=== PATIENT | male | born 1980 | race Caucasian/White ===

== ENCOUNTER 2021-09-18 19:08 | Inpatient (IN) | payer MEDICARE, MEDICAID ==
[~2021-09-18] VITALS: Ht 180.3 cm; Wt 116.6 kg
[2021-09-18 19:50] LABS: BASOPHILS % (AUTO) 0.6 % (0.0-2.0); EOSINOPHILS % (AUTO) 3.7 % (1.0-6.0); HEMATOCRIT 37.8 % (41-53); HEMOGLOBIN 13.1 g/dL (13.5-17.5); LYMPHOCYTES # (AUTO) 1.8 K/uL (1.0-4.8); LYMPHOCYTES % (AUTO) 23.4 % (22.0-44.0); MEAN CORPUSCULAR HEMOGLOBIN 28.9 pg (26.0-34.0); MEAN CORPUSCULAR HGB CONC 34.7 G/dL (31.0-37.0); MEAN CORPUSCULAR VOLUME 83 fL (80-100); MONOCYTES % (AUTO) 12.8 % (2.0-9.0); NEUTROPHILS # (AUTO) 4.5 K/uL (1.8-7.7); NEUTROPHILS % (AUTO) 59.5 % (40.0-70.0); PLATELET COUNT (AUTO) 205 K/uL (150-450); RED BLOOD CELL COUNT(AUTO) 4.53 MIL/uL (4.50-5.90); RED CELL DISTRIBUTION WIDTH 14.8 % (11.5-14.5)
[2021-09-18 20:00] LABS: ANION GAP 9 mmol/L (8-16); CALCIUM, TOTAL 9.1 mg/dL (8.8-10.5); CARBON DIOXIDE 29 mmol/L (22-29); CHLORIDE 98 mmol/L (98-107); CREATININE 0.95 mg/dL (0.60-1.30); GLOMERULAR FILTR. RATE CALC > 60 mL/min (>60); GLUCOSE,RANDOM 138 mg/dL (70-110); POTASSIUM 3.8 mmol/L (3.5-5.1); SODIUM SERUM 136 mmol/L (136-145); UREA NITROGEN, BLOOD 7 mg/dL (7-18)
[2021-09-18 20:05] LABS: ALANINE AMINOTRANSFERASE 56 U/L (12-78); ALBUMIN 3.7 g/dL (3.4-5.0); ALKALINE PHOSPHATASE 69 U/L (46-116); ASPARTATE AMINOTRANSFERASE 44 U/L (15-37); BILIRUBIN,TOTAL 0.2 mg/dL (0.1-1.0); TOTAL PROTEIN, SERUM 7.7 g/dL (6.4-8.2)
[2021-09-18 20:32] LABS: AMPHET/METH SCREEN,URINE NEGATIVE (NEGATIVE); BARBITURATE SCREEN, URINE NEGATIVE (NEGATIVE); BENZODIAZEPINES SCREEN,URINE NEGATIVE (NEGATIVE); CANNABINOID SCREEN,URINE NEGATIVE (NEGATIVE); COCAINE SCREEN,URINE NEGATIVE (NEGATIVE); METHADONE SCREEN, URINE NEGATIVE (NEGATIVE); OPIATE SCREEN,URINE NEGATIVE (NEGATIVE)
[2021-09-18 20:33] LABS: PHENCYCLIDINE SCREEN,URINE NEGATIVE (NEGATIVE)
[2021-09-18 20:52] LABS: COVID AG,FIA SOURCE NASAL SWAB
[2021-09-18] MEDS ORDERED: ZOLPIDEM TARTRATE 10 MG TABLET PO PRN (21:45)
[2021-09-18 22:46] VITALS: BP 138/86
[2021-09-19] MEDS: HALOPERIDOL 5 MG TABLET PO PRN ×3 (04:00→16:03)
[2021-09-19] MEDS: LORazepam 2 MG TABLET PO PRN ×3 (04:00→16:03)
[2021-09-19 04:50] VITALS: BP 136/79
[2021-09-19 08:00] VITALS: BP 125/82
[2021-09-19] MEDS ORDERED: CloNIDine HCL 0.1 MG TABLET PO PRN (11:00)
[2021-09-19] MEDS ORDERED: ONDANSETRON HCL 4 MG TABLET PO PRN (11:00)
[2021-09-19] MEDS ORDERED: ACETAMINOPHEN 325 MG TABLET PO PRN (11:00)
[2021-09-19] MEDS ORDERED: MAG HYDROX/AL HYDROX/SIMETH ES 30 ML SUSPENSION UDCUP PO PRN (11:00)
[2021-09-19] MEDS ORDERED: ALBUTEROL SULFATE HFA 90 MCG/PUFF 8 GM INHALER IH PRN (11:00)
[2021-09-19] MEDS ORDERED: LOPERAMIDE HCL 2 MG CAPSULE PO PRN (11:00)
[2021-09-19] MEDS ORDERED: DOCUSATE SODIUM 100 MG CAPSULE PO PRN (11:00)
[2021-09-19] MEDS ORDERED: PETROLATUM,WHITE 28 GM JELLY TP PRN (11:00)
[2021-09-19] MEDS ORDERED: IBUPROFEN 400 MG TABLET PO PRN (11:00)
[2021-09-19] MEDS ORDERED: GuaiFENesin/D-METHORPHAN [SUGAR-FREE] 200-20MG/10 ML SYRUP UDCUP PO PRN (11:00)
[2021-09-19] MEDS ORDERED: MAGNESIUM HYDROXIDE SUSPENSION 30 ML UDCUP PO PRN (11:00)
[2021-09-19 16:03] VITALS: BP 150/80
[2021-09-19] MEDS: NICOTINE 14 MG/24 HOUR PATCH TD PRN (16:03)
[2021-09-19 16:05] VITALS: BP 150/80
[2021-09-19] MEDS ORDERED: ChlorproMAZINE HCL 100 MG TABLET PO PRN (17:45)
[2021-09-19] MEDS ORDERED: ChlorproMAZINE HCL 50 MG TABLET PO PRN (18:18)
[2021-09-19] MEDS: TEMAZEPAM 15 MG CAPSULE PO PRN (20:32)
[2021-09-19] MEDS: TraZODone HCL 100 MG TABLET PO SCH (20:32)
[2021-09-19] MEDS: TRIHEXYPHENIDYL HCL 5 MG TABLET PO SCH (20:32)
[2021-09-19] MEDS: DIVALPROEX SODIUM 500 MG DR TABLET PO SCH (20:32)
[2021-09-20 04:43] VITALS: BP 135/82
[2021-09-20] MEDS: QUEtiapine FUMARATE 100 MG TABLET PO SCH ×3 (06:17→11:31)
[2021-09-20] MEDS: HALOPERIDOL 10 MG TABLET PO SCH ×5 (06:17→20:30)
[2021-09-20] MEDS: LORazepam 2 MG TABLET PO PRN ×3 (08:10→16:11)
[2021-09-20] MEDS: DIVALPROEX SODIUM 500 MG DR TABLET PO SCH ×3 (08:11→20:30)
[2021-09-20] MEDS: TRIHEXYPHENIDYL HCL 5 MG TABLET PO SCH ×3 (08:11→20:30)
[2021-09-20 08:23] VITALS: BP 146/90
[2021-09-20] MEDS ORDERED: HALOPERIDOL 5 MG TABLET PO PRN (13:45)
[2021-09-20 16:05] VITALS: BP 137/85
[2021-09-20] MEDS: NICOTINE 14 MG/24 HOUR PATCH TD PRN (17:11)
[2021-09-20] MEDS: TraZODone HCL 100 MG TABLET PO SCH (20:30)
[2021-09-20] MEDS: MELATONIN 5 MG TABLET PO SCH (20:30)
[2021-09-20] MEDS: TEMAZEPAM 15 MG CAPSULE PO PRN (20:30)
[2021-09-21 04:03] VITALS: BP 134/75
[2021-09-21] MEDS: LORazepam 2 MG TABLET PO PRN ×2 (06:26→16:34)
[2021-09-21 08:08] VITALS: BP 137/84
[2021-09-21] MEDS: TRIHEXYPHENIDYL HCL 5 MG TABLET PO SCH ×3 (08:12→20:29)
[2021-09-21] MEDS: HALOPERIDOL 10 MG TABLET PO SCH ×4 (08:12→20:30)
[2021-09-21] MEDS: NALTREXONE HCL 50 MG TABLET PO SCH (08:12)
[2021-09-21] MEDS: DIVALPROEX SODIUM 500 MG DR TABLET PO SCH ×3 (08:12→20:30)
[2021-09-21] MEDS: OMEGA-3/DHA/EPA/FISH OIL 1,000 MG CAPSULE PO SCH (08:12)
[2021-09-21 16:09] VITALS: BP 128/70
[2021-09-21] MEDS: MELATONIN 5 MG TABLET PO SCH (20:29)
[2021-09-21] MEDS: TraZODone HCL 100 MG TABLET PO SCH (20:30)
[2021-09-22 05:04] VITALS: BP 130/79
[2021-09-22 07:36] LABS: BASOPHILS % (AUTO) 0.7 % (0.0-2.0); EOSINOPHILS % (AUTO) 4.7 % (1.0-6.0); HEMATOCRIT 37.8 % (41-53); LYMPHOCYTES # (AUTO) 2.1 K/uL (1.0-4.8); LYMPHOCYTES % (AUTO) 24.7 % (22.0-44.0); MEAN CORPUSCULAR HEMOGLOBIN 29.1 pg (26.0-34.0); MEAN CORPUSCULAR HGB CONC 34.4 G/dL (31.0-37.0); MEAN CORPUSCULAR VOLUME 85 fL (80-100); NEUTROPHILS # (AUTO) 4.9 K/uL (1.8-7.7); NEUTROPHILS % (AUTO) 57.9 % (40.0-70.0); PLATELET COUNT (AUTO) 218 K/uL (150-450); RED BLOOD CELL COUNT(AUTO) 4.45 MIL/uL (4.50-5.90)
[2021-09-22 08:09] VITALS: BP 149/79
[2021-09-22] MEDS ORDERED: CloZAPine 25 MG TABLET PO SCH (09:00)
[2021-09-22] MEDS: TRIHEXYPHENIDYL HCL 5 MG TABLET PO SCH ×3 (09:06→20:41)
[2021-09-22] MEDS: DIVALPROEX SODIUM 500 MG DR TABLET PO SCH ×3 (09:07→20:41)
[2021-09-22] MEDS: NALTREXONE HCL 50 MG TABLET PO SCH (09:07)
[2021-09-22] MEDS: HALOPERIDOL 10 MG TABLET PO SCH ×4 (09:07→20:41)
[2021-09-22] MEDS: OMEGA-3/DHA/EPA/FISH OIL 1,000 MG CAPSULE PO SCH (09:07)
[2021-09-22] MEDS: GABAPENTIN 300 MG CAPSULE PO PRN ×2 (16:07→20:41)
[2021-09-22 16:09] VITALS: BP 140/96
[2021-09-22] MEDS: HALOPERIDOL 5 MG TABLET PO PRN (18:02)
[2021-09-22] MEDS: MELATONIN 5 MG TABLET PO SCH (20:41)
[2021-09-22] MEDS: TraZODone HCL 100 MG TABLET PO SCH (20:41)
[2021-09-22] MEDS: NICOTINE 14 MG/24 HOUR PATCH TD PRN (21:22)
[2021-09-23] MEDS: GABAPENTIN 300 MG CAPSULE PO PRN (02:05)
[2021-09-23] MEDS: HALOPERIDOL 5 MG TABLET PO PRN ×2 (02:05→06:14)
[2021-09-23 05:35] VITALS: BP 139/81
[2021-09-23 07:26] LABS: CHOL/HDL RATIO 4.1 (4.2-7.3); FREE T4 (FREE THYROXINE) 0.94 ng/dL (0.76-1.46); THYROID STIMULATING HORMONE 1.05 uIU/mL (0.36-3.74)
[2021-09-23] MEDS: TRIHEXYPHENIDYL HCL 5 MG TABLET PO SCH ×3 (08:15→20:10)
[2021-09-23] MEDS: HALOPERIDOL 10 MG TABLET PO SCH ×4 (08:15→18:28)
[2021-09-23] MEDS: NALTREXONE HCL 50 MG TABLET PO SCH (08:15)
[2021-09-23] MEDS: OMEGA-3/DHA/EPA/FISH OIL 1,000 MG CAPSULE PO SCH (08:15)
[2021-09-23] MEDS: DIVALPROEX SODIUM 500 MG DR TABLET PO SCH ×3 (08:15→20:11)
[2021-09-23 08:38] VITALS: BP 152/79
[2021-09-23] MEDS ORDERED: CloZAPine 25 MG TABLET PO SCH ×2 (09:00→21:00)
[2021-09-23] MEDS ORDERED: LORazepam 2 MG/ML VIAL ONE (09:36)
[2021-09-23] MEDS ORDERED: HALOPERIDOL LACTATE 5 MG/ML VIAL ONE (09:36)
[2021-09-23] MEDS ORDERED: DiphenhydrAMINE HCL 50 MG/ML VIAL ONE (09:36)
[2021-09-23] MEDS ORDERED: DiphenhydrAMINE HCL 50 MG/ML VIAL IM ONE (09:45)
[2021-09-23] MEDS ORDERED: LORazepam 2 MG/ML VIAL IM ONE (09:45)
[2021-09-23] MEDS ORDERED: HALOPERIDOL LACTATE 5 MG/ML VIAL IM ONE (09:45)
[2021-09-23 16:22] VITALS: BP 115/70
[2021-09-23] MEDS: MELATONIN 5 MG TABLET PO SCH (20:11)
[2021-09-23] MEDS: TraZODone HCL 100 MG TABLET PO SCH (20:11)
[2021-09-24 05:09] VITALS: BP 144/73
[2021-09-24 08:20] VITALS: BP 128/60
[2021-09-24] MEDS: OMEGA-3/DHA/EPA/FISH OIL 1,000 MG CAPSULE PO SCH (08:21)
[2021-09-24] MEDS: NALTREXONE HCL 50 MG TABLET PO SCH (08:21)
[2021-09-24] MEDS: HALOPERIDOL 10 MG TABLET PO SCH ×4 (08:22→20:36)
[2021-09-24] MEDS: TRIHEXYPHENIDYL HCL 5 MG TABLET PO SCH ×3 (08:22→20:36)
[2021-09-24] MEDS: DIVALPROEX SODIUM 500 MG DR TABLET PO SCH ×3 (08:22→20:37)
[2021-09-24] MEDS ORDERED: CloZAPine 25 MG TABLET PO SCH ×2 (09:00→21:00)
[2021-09-24] MEDS ORDERED: HALOPERIDOL LACTATE 5 MG/ML VIAL IM PRN (15:15)
[2021-09-24 16:08] VITALS: BP 128/84
[2021-09-24] MEDS: NICOTINE 14 MG/24 HOUR PATCH TD PRN (16:53)
[2021-09-24] MEDS: GABAPENTIN 300 MG CAPSULE PO PRN (16:53)
[2021-09-24] MEDS: MELATONIN 5 MG TABLET PO SCH (20:37)
[2021-09-24] MEDS: TraZODone HCL 100 MG TABLET PO SCH (20:37)
[2021-09-25] MEDS: HALOPERIDOL 5 MG TABLET PO PRN ×2 (01:04→06:25)
[2021-09-25] MEDS: GABAPENTIN 300 MG CAPSULE PO PRN ×2 (01:04→06:26)
[2021-09-25 01:12] VITALS: BP 125/70
[2021-09-25] MEDS: CloZAPine 25 MG TABLET PO SCH ×2 (08:13→20:19)
[2021-09-25] MEDS: TRIHEXYPHENIDYL HCL 5 MG TABLET PO SCH ×3 (08:14→20:18)
[2021-09-25] MEDS: HALOPERIDOL 10 MG TABLET PO SCH ×4 (08:14→20:19)
[2021-09-25] MEDS: NALTREXONE HCL 50 MG TABLET PO SCH (08:14)
[2021-09-25] MEDS: OMEGA-3/DHA/EPA/FISH OIL 1,000 MG CAPSULE PO SCH (08:14)
[2021-09-25] MEDS: DIVALPROEX SODIUM 500 MG DR TABLET PO SCH ×3 (08:14→20:19)
[2021-09-25 08:26] VITALS: BP 124/70
[2021-09-25 10:12] LABS: GLUCOMETER DEV NAME(LOC) POC.BV
[2021-09-25 16:09] VITALS: BP 130/68
[2021-09-25] MEDS: TraZODone HCL 100 MG TABLET PO SCH (20:19)
[2021-09-25] MEDS: MELATONIN 5 MG TABLET PO SCH (20:19)
[2021-09-26 03:52] VITALS: BP 126/67
[2021-09-26 08:11] VITALS: BP 122/68
[2021-09-26] MEDS: OMEGA-3/DHA/EPA/FISH OIL 1,000 MG CAPSULE PO SCH (08:32)
[2021-09-26] MEDS: CloZAPine 25 MG TABLET PO SCH ×2 (08:33→20:20)
[2021-09-26] MEDS: NALTREXONE HCL 50 MG TABLET PO SCH (08:33)
[2021-09-26] MEDS: DIVALPROEX SODIUM 500 MG DR TABLET PO SCH ×3 (08:33→20:20)
[2021-09-26] MEDS: HALOPERIDOL 10 MG TABLET PO SCH ×4 (08:33→20:20)
[2021-09-26] MEDS: TRIHEXYPHENIDYL HCL 5 MG TABLET PO SCH ×3 (08:33→20:20)
[2021-09-26 16:14] VITALS: BP 103/62
[2021-09-26] MEDS: MELATONIN 5 MG TABLET PO SCH (20:20)
[2021-09-26] MEDS: TraZODone HCL 100 MG TABLET PO SCH (20:21)
[2021-09-27 03:31] VITALS: BP 108/71
[2021-09-27] MEDS: HALOPERIDOL 10 MG TABLET PO SCH ×2 (08:23→13:28)
[2021-09-27] MEDS: NALTREXONE HCL 50 MG TABLET PO SCH (08:23)
[2021-09-27] MEDS: TRIHEXYPHENIDYL HCL 5 MG TABLET PO SCH ×4 (08:23→20:43)
[2021-09-27] MEDS: DIVALPROEX SODIUM 500 MG DR TABLET PO SCH ×3 (08:23→20:42)
[2021-09-27] MEDS: OMEGA-3/DHA/EPA/FISH OIL 1,000 MG CAPSULE PO SCH (08:23)
[2021-09-27] MEDS ORDERED: CloZAPine 25 MG TABLET PO SCH (09:00)
[2021-09-27 16:11] VITALS: BP 110/70
[2021-09-27] MEDS: NICOTINE 14 MG/24 HOUR PATCH TD PRN (16:56)
[2021-09-27] MEDS: GABAPENTIN 300 MG CAPSULE PO PRN (16:56)
[2021-09-27] MEDS ORDERED: HALOPERIDOL 10 MG TABLET PO PRN (17:45)
[2021-09-27] MEDS: MELATONIN 5 MG TABLET PO SCH (20:42)
[2021-09-27] MEDS: TraZODone HCL 100 MG TABLET PO SCH (20:42)
[2021-09-27] MEDS ORDERED: CloZAPine 100 MG TABLET PO SCH (21:00)
[2021-09-28] MEDS: OMEGA-3/DHA/EPA/FISH OIL 1,000 MG CAPSULE PO SCH (08:13)
[2021-09-28] MEDS: DIVALPROEX SODIUM 500 MG DR TABLET PO SCH ×3 (08:14→20:33)
[2021-09-28] MEDS: NALTREXONE HCL 50 MG TABLET PO SCH (08:14)
[2021-09-28] MEDS: TRIHEXYPHENIDYL HCL 5 MG TABLET PO SCH ×3 (08:14→20:33)
[2021-09-28 08:22] VITALS: BP 127/85
[2021-09-28] MEDS ORDERED: CloZAPine 25 MG TABLET PO SCH (09:00)
[2021-09-28] MEDS ORDERED: NICOTINE POLACRILEX 2 MG LOZENGE PO PRN (15:15)
[2021-09-28] MEDS: GABAPENTIN 300 MG CAPSULE PO PRN (16:07)
[2021-09-28 16:19] VITALS: BP 121/81
[2021-09-28] MEDS: TraZODone HCL 100 MG TABLET PO SCH (20:33)
[2021-09-28] MEDS: MELATONIN 5 MG TABLET PO SCH (20:33)
[2021-09-28] MEDS ORDERED: CloZAPine 100 MG TABLET PO SCH (21:00)
[2021-09-29 01:15] VITALS: BP 138/89
[2021-09-29] MEDS: TRIHEXYPHENIDYL HCL 5 MG TABLET PO SCH (08:35)
[2021-09-29] MEDS: DIVALPROEX SODIUM 500 MG DR TABLET PO SCH ×3 (08:35→22:13)
[2021-09-29] MEDS: OMEGA-3/DHA/EPA/FISH OIL 1,000 MG CAPSULE PO SCH (08:35)
[2021-09-29] MEDS: NALTREXONE HCL 50 MG TABLET PO SCH (08:35)
[2021-09-29] MEDS ORDERED: CloZAPine 25 MG TABLET PO SCH (09:00)
[2021-09-29 16:15] VITALS: BP 123/81
[2021-09-29] MEDS: TRIHEXYPHENIDYL HCL 2 MG TABLET PO SCH ×2 (17:01→22:12)
[2021-09-29] MEDS ORDERED: CloZAPine 100 MG TABLET PO SCH (21:00)
[2021-09-29] MEDS: MELATONIN 5 MG TABLET PO SCH (22:13)
[2021-09-29] MEDS: TraZODone HCL 100 MG TABLET PO SCH (22:13)
[2021-09-30 04:59] VITALS: BP 116/72
[2021-09-30 08:13] LABS: BASOPHILS % (AUTO) 0.6 % (0.0-2.0); EOSINOPHILS % (AUTO) 3.4 % (1.0-6.0); HEMATOCRIT 39.4 % (41-53); HEMOGLOBIN 13.7 g/dL (13.5-17.5); LYMPHOCYTES # (AUTO) 2.4 K/uL (1.0-4.8); LYMPHOCYTES % (AUTO) 29.6 % (22.0-44.0); MEAN CORPUSCULAR HEMOGLOBIN 29.3 pg (26.0-34.0); MEAN CORPUSCULAR HGB CONC 34.7 G/dL (31.0-37.0); MEAN CORPUSCULAR VOLUME 85 fL (80-100); MONOCYTES # (AUTO) 0.9 K/uL (0.1-1.0); MONOCYTES % (AUTO) 10.5 % (2.0-9.0); NEUTROPHILS # (AUTO) 4.6 K/uL (1.8-7.7); NEUTROPHILS % (AUTO) 55.9 % (40.0-70.0); PLATELET COUNT (AUTO) 253 K/uL (150-450); RED BLOOD CELL COUNT(AUTO) 4.66 MIL/uL (4.50-5.90); RED CELL DISTRIBUTION WIDTH 15.1 % (11.5-14.5)
[2021-09-30] MEDS: OMEGA-3/DHA/EPA/FISH OIL 1,000 MG CAPSULE PO SCH (08:37)
[2021-09-30] MEDS: CloZAPine 100 MG TABLET PO SCH ×2 (08:37→20:31)
[2021-09-30] MEDS: DIVALPROEX SODIUM 500 MG DR TABLET PO SCH ×3 (08:37→20:30)
[2021-09-30] MEDS: TRIHEXYPHENIDYL HCL 2 MG TABLET PO SCH ×3 (08:37→20:37)
[2021-09-30] MEDS: NALTREXONE HCL 50 MG TABLET PO SCH (08:37)
[2021-09-30 16:13] VITALS: BP 127/68
[2021-09-30] MEDS: TraZODone HCL 100 MG TABLET PO SCH (20:30)
[2021-09-30] MEDS: MELATONIN 5 MG TABLET PO SCH (20:31)
[2021-10-01 01:18] VITALS: BP 121/77
[2021-10-01] MEDS: OMEGA-3/DHA/EPA/FISH OIL 1,000 MG CAPSULE PO SCH (08:25)
[2021-10-01] MEDS: DIVALPROEX SODIUM 500 MG DR TABLET PO SCH (08:25)
[2021-10-01] MEDS: TRIHEXYPHENIDYL HCL 2 MG TABLET PO SCH (08:25)
[2021-10-01] MEDS: NALTREXONE HCL 50 MG TABLET PO SCH (08:25)
[2021-10-01] MEDS: CloZAPine 100 MG TABLET PO SCH (08:26)
[2021-10-01 08:33] VITALS: BP 137/94
[2021-10-01] MEDS ORDERED: TRIH2TAB3 PO (12:05)
[2021-10-01] MEDS ORDERED: CLOZ100T32 PO (12:05)
[2021-10-01] MEDS ORDERED: MELA5TAB40 PO (12:05)
[2021-10-01] MEDS ORDERED: OMEG-108 PO (12:05)
[2021-10-01] MEDS ORDERED: NALT50TA6 PO (12:05)
[2021-10-01] MEDS ORDERED: TRAZ-257 PO (12:05)
[2021-10-01] MEDS ORDERED: DIVA-112 PO ×2 (12:05)
[2021-10-02] MEDS ORDERED: CloZAPine 100 MG TABLET PO SCH ×2 (09:00→21:00)
[2021-10-02] MEDS ORDERED: CloZAPine 25 MG TABLET PO SCH (09:00)
[2021-10-03] MEDS ORDERED: CloZAPine 25 MG TABLET PO SCH (09:00)
[2021-10-03] MEDS ORDERED: CloZAPine 100 MG TABLET PO SCH (21:00)
[2021-10-04] MEDS ORDERED: CloZAPine 100 MG TABLET PO SCH ×2 (09:00→21:00)
== END 2021-10-01 13:40 | DRG 885 ==
LOC: EMS 19:16 → B3A 21:17
PROVIDERS: ADMIT Psychiatry & Neurology Psychiatry; ATTEND Psychiatry & Neurology Psychiatry
DX: F20.0 Paranoid schizophrenia (principal); R45.851 Suicidal ideations; Z20.822 Contact with and (suspected) exposure to COVID-19; I10 Essential (primary) hypertension; D64.9 Anemia, unspecified; E66.9 Obesity, unspecified; Z68.35 Body mass index [BMI] 35.0-35.9, adult; Z55.9 Problems related to education and literacy, unspecified; Z59.01 Sheltered homelessness; Z63.9 Problem related to primary support group, unspecified; Z65.3 Problems related to other legal circumstances; Z91.19 Patient's noncompliance with other medical treatment and regimen
CPT/HCPCS: 80053; 80061; 80164; 80173; 83036; 84439; 84443; 85025; 99285; G0480; J1200; J1630; J2060; Q9967